=== PATIENT | female | born 1970 | race Caucasian/White ===

== ENCOUNTER 2024-04-06 16:34 | Emergency (ER) | payer OTHER, SELFPAY ==
--- OUTSIDE RECORDS SUMMARY | 2024-04-06 16:36 | XMS_ITS | Referral Summary ---
Author Organization [facility] Address [address] [place] [address] Care Team Providers Care Boom Stick Worker Name Role Phone Benita Lo APRN, C.N.P. Primary Care [facility] Source Comments Patient records contain information from all sites at [facility]. For routine questions regarding patient records, call [phone] during business hours, M-F 8:00 AM - 5:00 PM Central Time. Record requests for emergency care only can be directed to [phone] at any time.[facility] Encounters Date Type Department Care Team Description 03/22/2024 2:30 PM CRIMINAL JUSTICE INSTRUCTOR E-Visit [facility] [address] [place] [phone] Jerry Ferguson APRN, C.N.P., M.S.N. Express Care Online for Sinus Symptoms (sinusitis) 02/27/2024 Orders Only [facility] Benita Lo APRN, C.N.P. Screening Mammogram Breast Cancer 01/28/2024 Orders Only Department of Otorhinolaryngology in [place], [place] [address] [place] [phone] Stacey Gamez L.P.N. Cyst Thyroglossal Duct (Primary Dx) 01/24/2024 Clinical Communication Department of Otorhinolaryngology in [place], [place] [address] [place] [phone] Prescheduling, Provider Appt Request from Last 3 Months Allergies No known active allergies Medications magnesium glycinate 100 mg tablet Take 120 mg by mouth daily. Active estradioL (Estrace) 0.1 mg/g (0.01%) vaginal cream Insert 1 g into the vagina. 09/14/2023 Active rizatriptan (Maxalt) 10 mg tablet Take 10 mg by mouth as needed for migraine. 05/02/2023 Active topiramate (Topamax) 25 mg tablet Take 50 mg by mouth daily. 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 Resolved Problems Problem Noted Date Diagnosed Date Resolved Date Hematoma Of Soft Tissue Nontraumatic 09/08/2018 03/11/2021 Mass Neck 08/26/2018 01/04/2020 Overview (08/26/2018): Added automatically from request for surgery [id number] Immunizations Name Administration Dates Next Due HepB, Unspecified 01/07/2002,07/16/2001,04/15/19 02 Influenza TIV (IM) 03/03/2003 Influenza, Unspecified 02/10/2018,03/03/2003 SARS-COV-2 (COVID-19) - MODERNA(Discontinued) 03/10/2021 Td (Adult), adsorbed 07/16/2001 Td, (Adult) Unspecified 07/24/2010 Tdap 12/04/2018 influenza trivalent vaccine (6 months and older)(PF) 03/04/2012 influenza vaccine quad (FLUZ ONE/FLUARIX) (6 months and older)(PF) 01/23/2023,12/25/2019,02/09/2018 Social History Tobacco Use Types Packs/Day Years Used Date Smoking Tobacco: Never Passive Smoke Exposure: Past Smokeless Tobacco: Never Tobacco Cessation:Counseling Given: Not Answered Alcohol Use Standard Drinks/Week Comments Yes 0 (1 standard drink = 0.6 oz pur e alcohol) Once a year [facility] Utilities Answer Date Recorded In the past 12 months has e [employer], gas, oil, or water [employer] threatened to shut off services in your home? No 09/23/2023 Humiliation, Afraid, Rape, and Kick questionnair e Answer Date Recorded Within the last year, have y ou been afraid of your partner or ex-partner? No 12/26/2021 Within the last year, have y ou been humiliated or emotionally abused in other ways by your partner or ex-partner? No Within the last year, have y ou been kicked, hit, slapped, or otherwise physically hurt by your partner or ex-partner? No 12/26/2021 Within the last year, have y ou been raped or forced to have any kind of sexual activity by your partner or ex-partner? No 12/26/2021 Social Connection and Isolat ion Panel [NHANES] Answer Date Recorded In a typical week, how many times do you talk on the phone with family, friends, or neighbors? More than three times a week 12/26/2021 How often do you get togethe r with friends or relatives? More than three times a week 12/26/2021 How often do you attend memorial healthcare or protestant services? More than 4 times per year 12/26/2021 Do you belong to any clubs o r organizations such as nondenominational groups, unions, fraternal or athletic groups, or school groups? Yes 12/26/2021 How often do you attend meet ings of the clubs or organizations you belong to? More than 4 times per year 12/26/2021 Are you , , di vorced, , never , or living with a partner? 12/26/2021 AUDIT-C Answer Date Recorded Q1: How often do you have a drink containing alc ohol? Never 12/26/2021 Average Number of Drinks Not on file 022 Frequency of Binge Drinking Not on file 05/2021 Overall Financial Resource Strain (CARDIA) Answe r Date Recorded How hard is it for you to pa y for the very basics like food, housing, medical care, and heating? Not hard at all 12/26/2021 PHQ-2 Answer Date Recorded PHQ-2 Score 0 04/03/2022 [facility] - Occupational Stress Questionnaire Answer Date Recorded Do you feel stress - tense, restless, nervous, or anxious, or unable to sleep at night because your mind is troubled all the time - these days? Not at all 12/26/2021 Exercise Vital Sign Answer Date Recorde d On average, how many days pe r week do you engage in moderate to strenuous exercise (like a brisk walk)? 3 days 09/23/2023 On average, how many minutes do you engage in exercise at this level? 30 min 09/23/2023 Hunger Vital Sign Answer Date Recorded Within the past 12 months, y ou worried that your food would run out before you got the money to buy more. Never true 09/23/19 24 Within the past 12 months, t he food you bought just didn't last and you didn't have money to get more. Never true 09/23/2023 PRAPARE - Transportation Answer Date Re corded In the past 12 months, has l ack of transportation kept you from medical appointments or from getting medications? No 08/26 In the past 12 months, has l ack of transportation kept you from meetings, work, or from getting things needed for daily living? No 09/23/2023 Nutrition Answer Date Recorded On average, how many serving s of fruits and vegetables do you eat per day (serving size is equal to 1 cup or approximately the size of a tennis ball)? 5 or more 09/23/2023 Dental Answer Date Recorded Dental: Regular Dentist Yes 12/27/19 Employment Answer Date Recorded Employment status Employed and actively working without restrictions 09/23/2023 Housing Stability Answer Date Recorded What is your living situation today? I have a [facility] place to live 09/23/2023 Education Answer Date Recorded What is the highest level of school you have completed or the highest degree you have received? Bachelor's degree (e.g., BA, AB, BS) 11/08/2018 Comments No Sex and Gender Information Value Date Recorded Sex Assigned at Female 11/01/2017 8:04 AM CDT Legal Sex Female 5:59 AM CRIMINAL JUSTICE INSTRUCTOR Gender Identity Female 11/01/2017 8:04 AM CDT Sexual Orientation Straight 11/01/2017 8: 04 AM CDT Last Filed Vital Signs Vital Sign Reading Time Taken Comments Blood Pressure 146/78 09/24/2023 1:14 PM CDT Pulse 86 09/24/2023 1:14 PM CDT Temperature 36.8 C (98.2 F) 09/24/2023 1:14 PM CDT Respiratory Rate 16 12/28/2022 9:15 AM CDT Oxygen Saturation 100% 10/24/2018 12:31 PM CDT Inhaled Oxygen Concentration - - Weight 67.3 kg (148 lb 4.2 oz) 09/24/2023 1:14 P M CDT Height 170.7 cm (5' 7.21) 09/24/2023 1:14 PM CD T Body Mass Index 23.08 09/24/2023 1:14 PM CDT Plan of Treatment Not on file Procedures Procedure Name Priority Date/Time Associated Diagnosis Comments GLUCOSE, FASTING, S/P Routine 12/13/2021 7:46 AM CDT Screening Examination Diabetes Mellitus LIPID PANEL, S Routine 12/13/2021 7:46 AM CDT Screening Lipid COLOGUARD Routine 06/02/2020 2:20 PM CRIMINAL JUSTICE INSTRUCTOR Screening Colon Cancer Average Risk BI BREAST SCREENING BILATERAL WITH TOMOSYNTHESIS RAD - Routine (most inpatients and all outpatients) 02/02/2020 3:56 PM CRIMINAL JUSTICE INSTRUCTOR Screening Mammogram Breast Cancer from Last 3 Months or Most Recently Relevant to Health Maintenance Results * Lipid Panel (12/13/2021 7:46 AM CDT) Triglycerides 44 mg/dL 12/13/2021 11:38 AM CDT OWAT Comment: ----REFERENCE VALUE---- Normal: <150 mg/dL Borderline High: 150-199 mg/dL High: 200-499 mg/dL Very High: > or =500 mg/dL Cholesterol, Total 164 mg/dL 2021 11:38 AM CDT OWAT Comment: ----REFERENCE VALUE---- Desirable: < 200 mg/dL Borderline High: 200 - 239 mg/dL High: > or = 240 mg/dL Cholesterol, LDL, Calculated 102 mg/dL 12/13/2021 11:38 AM CDT OWAT Comment: ----REFERENCE VALUE---- Desirable: <100 mg/dL Above Desirable: 100-129 mg/dL Borderline High: 130-159 mg/dL High: 160-189 mg/dL Very High: >=190 mg/dL ----ADDITIONAL INFORMATION---- LDL cholesterol calculated using the Barba/NIH equation. Cholesterol, HDL 53 >=50 mg/dL 12/14/19 11:38 AM CDT OWAT Cholesterol, Non-HDL, Calculated 111 mg/dL 12/13/2021 11:38 AM CDT OWAT Comment: ----REFERENCE VALUE---- Desirable: <130 mg/dL Above Desirable: 130-159 mg/dL Borderline High: 160-189 mg/dL High: 190-219 mg/dL Very High: > or =220 mg/dL Fasting (8 HR or more) Yes 12/13/2021 10:59 AM CDT OWAT Blood (Blood, Venous) 12/13/2021 7:46 AM CDT 12/13/2021 10:59 AM CDT Stacey Bailey M.D. LAB BLOOD ADD-ON Final Re sult Performing Organization Address [facility] Co de Phone Number [facility] [address] [place] [phone], [facility] OWAT [facility] [place] [address] [place] [id number] * Glucose, Fasting (12/13/2021 7:46 AM CDT) Glucose, P 81 70 - 100 mg/dL 12/13/2021 11:44 AM CDT OWAT Last Intake 12 hr 12/13/2021 10:59 AM CDT OWAT Blood (Blood, Venous) 12/13/2021 7:46 AM CDT 12/13/2021 10:59 AM CDT us Stacey Bailey M.D. LAB BLOOD NON ADD-ON Brinda l Result Performing Organization Address City/[facility]/ZIP Co de Phone Number [facility] [address] [place] [phone], [facility] OWAT [facility] [place] [address] [place] [address] * Cologuard-Sent Out Lab (06/02/2020 2:20 PM CRIMINAL JUSTICE INSTRUCTOR) Result Negative Not Applicable 06/06/2020 11:07 PM CDT [facility] Comment: A negative result indicates a low likelihood that a colorectal cancer (CRC) or an advanced adenoma (adenomatous polyps with more advanced pre-malignant features) is present. The chance that a person with a negative Cologuard test has a colorectal cancer is less than 1 in 1500 (negative predictive value >99.9%) or has an advanced adenoma is less than 5.3% (negative predictive value 94.7%). These data are based on a prospective cross-sectional screening study of 10,000 individuals at average risk for colorectal cancer who were screened with both Cologuard and colonoscopy. (Ariel Diallo et al, N Engl J Med 2014;370(14):7053-2712) The normal value (reference range) for this assay is negative. COLOGUARD RE-SCREENING RECOMMENDATION: Periodic routine colorectal cancer screening is an important part of preventive healthcare for asymptomatic persons at average risk for colorectal cancer. Following a negative Cologuard result, the [place] Cancer Society and U.S. Multi-Society Task Force screening guidelines recommend a Cologuard re-screening interval of 3 years. References: [place] [employer] Society (ACS). Colorectal cancer prevention and early detection. [place], [place]: [place] [employer] Society; [updated 2015Jul 17]. https://www.cancer.org/cancer/vxpmh-eyqfyi-keuuvc/detection- diagnosis-staging/acs-recommendations.html. Accessed November 23, 2017; Gary DK, Hola CR, Beckie CaraballoK, Colorectal Cancer Screening: Recommendations for Physicians and Patients from the U.S. Multi-Society Task Force on Colorectal Cancer Screening, Am J Gastroenterology 2017; 112:9450-0799. TEST TYPE: Composite algorithmic analysis of stool DNA-biomarkers with hemoglobin immunoassay. Quantitative values of individual biomarkers are not reportable and are not associated with individual biomarker result reference ranges. PRECAUTIONS AND LIMITATIONS: Cologuard is intended for colorectal cancer screening of adults of either sex, 45 years or older, who are at average-risk for colorectal cancer (CRC). Cologuard has been approved for use by the U.S. FDA. Cologuard may produce a false negative or false positive result. A negative Cologuard test result does not guarantee the absence of CRC or advanced adenoma (pre-cancer). Patients with a negative Cologuard test result should be advised to continue participating in a colorectal cancer screening program. The screening interval for Cologuard is currently recommended at an interval of every 3 years by the [place] [employer] Society and U.S. Multi-Society Task Force. A false positive result occurs when Cologuard produces a positive result, even though a colonoscopy may not find colorectal cancer or precancerous polyps. The performance of Cologuard has been established in a cross sectional study (i.e., single point in time) of average-risk adults aged 50-84. Cologuard performance in patients ages 45 to 49 years was estimated by sub-group analysis of near-age groups. Cologuard performance data in a 10,000 patient pivotal study using colonoscopy as the reference method can be accessed at the following location: www.ShowKit/results. Additional description of the Cologuard test process, warnings and precautions can be found at www.cologuardtest.com. Rx only. Stool (Stool) 06/02/2020 2:2 0 PM CRIMINAL JUSTICE INSTRUCTOR 06/03/2020 11:07 AM CRIMINAL JUSTICE INSTRUCTOR Stacey Bailey M.D. LAB BODY FLUIDS AND STOOL S ORDERABLES Final Result [employer] [address] [place] [address] [facility] [employer] [address] [facility], [address] [place] [address] from Last 3 Months or Most Recently Relevant to Health Maintenance Insurance [facility] Advance Directives For more information, please contact: [phone] Documents on File Type Date Recorded Patient Crane Hooker Expl anation Advance Directives 02/08/2017 12:00 AM Aubree mcbride document. See document viewer. * Full Code (Latest Code Status on File) Date Activated Date Inactivated Comments 09/08/2018 11:52 AM 09/09/2018 12:49 PM Question Answer Comments Full Code: Not Discussed Due to: Not medically appropriate Care Teams Boom Stick Worker Relationship Specialty Start Date End Date Benita Lo APRN, C.N.P. [address] [place] [phone] PCP - General 04/13/22
--- OUTSIDE RECORDS SUMMARY | 2024-04-06 16:36 | XMS_ITS | Encounter Summary ---
Author Organization [facility] Address [address] [place] [address] Care Team Providers Care Screw Machine Adjuster Automatic Name Role Phone Benita Lo APRN, C.N.P. Primary Care [facility] Reason for Visit * Reason Onset Date Comments Appt Request 01/24/2024 Encounter Details Date Type Department Care Team (Latest Contact Info) Description 01/24/2024 Clinical Communication Department of Otorhinolaryngology in [place], [place] [address] [place] [address] Prescheduling, Provider Appt Request Social History Tobacco Use Types Packs/Day Years Used Date Smoking Tobacco: Never Passive Smoke Exposure: Past Smokeless Tobacco: Never Alcohol Use Standard Drinks/Week Comments Yes 0 (1 standard drink = 0.6 oz pur e alcohol) Once a year [facility] Utilities Answer Date Recorded In the past 12 months has e [employer], gas, oil, or water [employer] threatened to shut off services in your [...] week 12/26/2021 How often do you attend chur or latter day services? More than 4 times per year 12/26/2021 Do you belong to any clubs o r organizations such as alevism groups, unions, fraternal or athletic groups, or [...] Answer Date Recorded PHQ-2 Score 0 04/03/2022 [facility] Questionnaire Answer Date Recorded [...] your living situation today? [facility] to live 09/23/2023 Education Answer Date Recorded What is the highest level of school you have completed or the highest degree you have received? Bachelor's degree (e.g., BA, AB, BS) 11/08/2018 Comments No Sex and Gender Information Value Date Recorded Sex Assigned at Female 11/01/2017 8:04 AM CDT Legal Sex Female 5:59 AM BALL ASSEMBLER Gender Identity Female 11/01/2017 8:04 AM CDT Sexual Orientation Straight 11/01/2017 8: 04 AM CDT documented as of this encounter Plan of Treatment Not on file documented as of this encounter Visit Diagnoses Not on filedocumented in this encounter Additional Health Concerns Assessment Noted Time PHQ-9 Depression Total Score: 0 03/01/20 18 1:18 PM BALL ASSEMBLER documented as of this encounter Care Teams Screw Machine Adjuster Automatic Relationship Specialty Start Date End Date Benita Lo, BERNADINE, C.N.P. [address] [place] [phone] PCP - General 04/13/22 documented as of this encounter
--- OUTSIDE RECORDS SUMMARY | 2024-04-06 16:36 | XMS_ITS | Clinical Summary ---
Author Organization [facility] Address [address] [place] [address] Care Team Providers Care Public Housing Interviewer Name Role Phone Benita Lo APRN CStevenNStevenP. Primary Care Provi addie Source Comments Patient records contain information from all sites at [facility]. For routine questions regarding patient records, call [phone] during business hours, M-F 8:00 AM - 5:00 PM Central Time. Record requests for emergency care only can be directed to [phone] at any time.[facility] Allergies No known active allergies Medications magnesium [...] (08/26/2018): Added automatically from request for surgery [id number] Encounters Date Type Department Care Team Description 03/22/2024 2:30 PM BROOMCORN PRESS FEEDER E-Visit [facility] [address] [place] [address] Jerry Ferguson, BERNADINE, C.N.P., M.S.N. Express Care Online for Sinus Symptoms (sinusitis) 02/27/2024 Orders Only [facility] MNT Benita Lo, BERNADINE, C.N.P. Screening Mammogram Breast Cancer 01/28/2024 Orders Only Department of Otorhinolaryngology in [place], [place] [address] [place] [address] Stacey Gamez L.P.N. Cyst Thyroglossal Duct (Primary Dx) 01/24/2024 Clinical Communication Department of Otorhinolaryngology in [place], [place] [address] [place] [phone] Prescheduling, Provider Appt Request from Last 3 Months Immunizations Name Administration Dates Next Due HepB, Unspecified 01/07/2002,07/16/2001,04/15/19 02 Influenza TIV (IM) 03/03/2003 Influenza, Unspecified 02/10/2018,03/03/2003 SARS-COV-2 (COVID-19) - MODERNA(Discontinued) 03/10/2021 Td (Adult), adsorbed 07/16/2001 Td, (Adult) Unspecified 07/24/2010 Tdap 12/04/2018 influenza trivalent vaccine (6 months and older)(PF) 03/04/2012 influenza vaccine quad (FLUZ ONE/FLUARIX) (6 months and older)(PF) 01/23/2023,12/25/2019,02/09/2018 Family History Medical History Relation Name Comments Breast cancer Cousin x3 maternal Coronary artery disease Father marina citurs Diabetes Father marina citurs Hyperlipidemia Father marina citedinson Osteoporosis Maternal Grandmother fabiola bundy Other cancer Maternal Grandmother fabiola bundy Bone a nd multiple myeloma Skin cancer Maternal Grandmother fabiola bundy Breast cancer Mother clari hope Hyperlipidemia Mother clari hope Osteoporosis Mother clari hope Skin cancer Mother clari hope Breast cancer Mother's Sister 1 Gaby Breast cancer Mother's Sister 2 Breast cancer Mother's Sister 3 azul Coronary artery disease Mother's Sister 3 azul Coronary artery disease Paternal Grandfather lyric walls rs Diabetes Paternal Grandfather lyric worley Relation Name Status Comments Cousin x3 maternal Alive Father marina worley Alive Maternal Grandmother fabiola bundy Alive Mother clari hope Alive Mother's Sister 1 Gaby Alive Mother's Sister 2 Mother's Sister 3 azul Alive Paternal Grandfather lyric worley Alive Social History Tobacco Use Types Packs/Day Years Used Date Smoking Tobacco: Never Passive Smoke Exposure: Past Smokeless Tobacco: Never Tobacco Cessation:Counseling Given: Not Answered Alcohol Use Standard Drinks/Week Comments Yes 0 (1 standard drink = 0.6 oz pur e alcohol) Once a year [facility] Utilities Answer Date Recorded In the past 12 months has e [employer], gas, oil, or water [employer] threatened to shut off services in your [...] How often do you attend chur or yarsanism services? More than 4 times per year 12/26/2021 Do you belong to any clubs o r organizations such as mormon groups, unions, fraternal or athletic groups, or [...] Answer Date Recorded PHQ-2 Score 0 04/03/2022 [facility] Occupat ional Health - Occupational Stress [...] AM CDT Legal Sex Female 5:59 AM BROOMCORN PRESS FEEDER Gender Identity Female 11/01/2017 8:04 AM CDT [...] 09/24/2023 1:14 PM CDT Plan of Treatment Health Maintenance Due Date Last Done Comments CT Colonography 1970 Colonoscopy 1970 FIT 1970 HIV Screening 1970 Hepatitis C Screening 1970 Pneumococcal vaccine (50+ years) (1 of 1 - PCV) 01/28/2020 Zoster Vaccines (1 of 2) 01/28/2020 COVID-19 Vaccine ( - season) 2023 03/10/2021, 08/03/2020, 07/06/2020 Influenza Vaccine (#1) 2023 , 12/25/2019, 02/10/2018, Additional history exists Depression Screening (Annual PHQ-2) 03/26/2024 Fasting Glucose for Diabetes Screening 12/13/2024 12/13/2021, 09/08/2018, 11/01/2017, Additional history exists Mammogram 03/05/2025 03/05/2024, 02/23, 02/23/2023, Additional history exists Cologuard 06/20/2026 06/21/2023, 05/25, 06/02/2020 Colorectal Cancer Screening 06/20/2026 Lipid (Cholesterol) Screening 09/12/2028 09/13/2023, 12/13/2021, 11/01/2017 DTaP,Tdap,and Td Vaccines (2 - Td or Tdap) 12/04/2028 12/04/2018, 07/24/2010, 07/16/2001 Hepatitis B Vaccines Completed 01/07/2002, 07/16/2001, 04/15/2001 IPV Vaccines Aged Out No longer eligi ble based on patient's age to complete this topic Procedures Procedure Name Priority Date/Time Associated Diagnosis Comments GLUCOSE, FASTING, S/P Routine 12/13/2021 7:46 AM CDT Screening Examination Diabetes Mellitus LIPID PANEL, S Routine 12/13/2021 7:46 AM CDT Screening Lipid COLOGUARD Routine 06/02/2020 2:20 PM BROOMCORN PRESS FEEDER Screening Colon Cancer Average Risk BI BREAST SCREENING BILATERAL WITH TOMOSYNTHESIS RAD - Routine (most inpatients and all outpatients) 02/02/2020 3:56 PM BROOMCORN PRESS FEEDER Screening Mammogram Breast Cancer from Last 3 [...] CDT us Stacey Bailey M.D. LAB BLOOD ADD-ON Final Re sult [facility] [address] [place] [address], [facility] OWAT [facility] [place] [address] [place] [address] * Glucose, Fasting (12/13/2021 7:46 AM CDT) Glucose, P 81 70 - 100 mg/dL 12/13/2021 11:44 AM CDT OWAT Last Intake 12 hr 12/13/2021 10:59 AM CDT OWAT Blood (Blood, Venous) 12/13/2021 7:46 AM CDT 12/13/2021 10:59 AM CDT us Stacey Bailey M.D. LAB BLOOD NON ADD-ON Brinda l Result [facility] [address] [place] [address], [place] OWAT [facility] [place] [address] [place] [address] * Cologuard-Sent Out Lab (06/02/2020 2:20 PM BROOMCORN PRESS FEEDER) Result Negative Not Applicable 06/06/2020 11:07 PM [...] screened with both Cologuard and colonoscopy. (Ariel Jeff al, N Engl J Med 2014;370(14):1007-0608) The normal value (reference range) for this assay is negative. COLOGUARD RE-SCREENING RECOMMENDATION: Periodic routine colorectal cancer screening is an important part of preventive healthcare for asymptomatic persons at average risk for colorectal cancer. Following a negative Cologuard result, the [place] Cancer Society and U.S. Multi-Society Task Force screening guidelines recommend a Cologuard re-screening interval of 3 years. References: [place] [employer] Society (ACS). Colorectal cancer prevention and early detection. [place], [place]: [place] [employer] Society; [updated 2016 Jul 17]. https://www.cancer.org/cancer/ussax-ddbknw-kgzwfa/detection- diagnosis-staging/acs-recommendations.html. Accessed November 23, 2017; Gary DK, Hola CR, Beckie HERNANDEZ, Colorectal Cancer Screening: Recommendations for Physicians and Patients from the U.S. Multi-Society Task Force on Colorectal Cancer Screening, Am J Gastroenterology 2017; 112:7668-1760. TEST TYPE: Composite algorithmic analysis of stool [...] interval of every 3 years by the [place] [employer] Society and U.S. Multi-Society Task Force. [...] can be accessed at the following location: www.[employer]/results. Additional description of the Cologuard test process, warnings and precautions can be found at www.cologuardtest.com. Rx only. Stool (Stool) 06/02/2020 2:2 0 PM BROOMCORN PRESS FEEDER 06/03/2020 11:07 AM BROOMCORN PRESS FEEDER us Stacey Bailey M.D. LAB BODY FLUIDS AND STOOL S ORDERABLES Final Result [employer] [address] [place] [address] [email or web address] [address] [place] [address], [address] [place] [address] from Last 3 Months or Most Recently Relevant to Health Maintenance Insurance [facility] Advance Directives For more information, please contact: [phone] Documents on File Type Date Recorded Patient Materials Handling Coordinator Expl anation Advance Directives 02/08/2017 12:00 AM Aubree mcbride document. See document viewer. * Full Code (Latest Code Status on File) Date Activated Date Inactivated Comments 09/08/2018 11:52 AM 09/09/2018 12:49 PM Question Answer Comments Full Code: Not Discussed Due to: Not medically appropriate Care Teams Public Housing Interviewer Relationship Specialty Start Date End Date Benita Lo, BERNADINE, C.N.P. [address] [phone] PCP - General 04/13/22
--- OUTSIDE RECORDS SUMMARY | 2024-04-06 16:36 | XMS_ITS | Encounter Summary ---
Author Organization [facility] Address [address] [place] [address] Care Team Providers Care Network Strategist Name Role Phone Benita Lo APRN, C.N.P. Primary Care Provi [facility] Encounter Details Date Type Department Care Team (Late st Contact Info) Description 03/22/2024 2:30 PM MEAL ROOM HAND E-Visit [facility] [address] [place] [address] Jerry Ferguson APRN, C.N.P., M.S.N. [address] [place] [phone] Express Care Online for Sinus Symptoms (sinusitis) Social History Tobacco Use Types Packs/Day Years Used Date Smoking Tobacco: Never Passive Smoke Exposure: Past Smokeless Tobacco: Never Alcohol Use Standard Drinks/Week Comments Yes 0 (1 standard drink = 0.6 oz pur e alcohol) Once a year [facility] Utilities Answer Date Recorded In the past 12 months has [employer], gas, oil, or water [employer] threatened to shut off services in your [...] How often do you attend chur or zoroastrianism services? More than 4 times per year 12/26/2021 Do you belong to any clubs o r organizations such as islam groups, unions, fraternal or athletic groups, or [...] Answer Date Recorded PHQ-2 Score 0 04/03/2022 [facility] of Occupat ional Health - Occupational Stress [...] your living situation today? I have a [facility] place to live 09/23/2023 Education Answer Date Recorded What is the highest level of school you have completed or the highest degree you have received? Bachelor's degree (e.g., BA, AB, BS) 11/08/2018 Comments No Sex and Gender Information Value Date Recorded Sex Assigned at Female 11/01/2017 8:04 AM CDT Legal Sex Female 5:59 AM MEAL ROOM HAND Gender Identity Female 11/01/2017 8:04 AM CDT Sexual Orientation Straight 11/01/2017 8: 04 AM CDT documented as of this encounter Plan of Treatment Not on file documented as of this encounter Visit Diagnoses Diagnosis Sinusitis Acute- Primary documented in this encounter Additional Health Concerns Assessment Noted Time PHQ-9 Depression Total Score: 0 03/01/20 18 1:18 PM MEAL ROOM HAND documented as of this encounter Care Teams Network Strategist Relationship Specialty Start Date End Date Benita Lo APRN, C.N.P. [address] [place] [address] PCP - General 04/13/22 documented as of this encounter
--- OUTSIDE RECORDS SUMMARY | 2024-04-06 16:36 | XMS_ITS | Clinical Summary ---
Author Organization [facility] Address [place], [place] [address] Care Team Providers Care Rice Drier Name Role Phone Stacey Bailey MD Primary Care Provider Allergies No known active allergies Medications cholecalciferol (VITAMIN D3) 1,000 unit tablet Take 25 mcg by mouth. Active Lactobacillus rhamnosus GG (CULTURELLE) 15 billion cell capsule Take 1 capsule by mouth. Active SUMAtriptan (IMITREX) 50 mg tablet TAKE 1 TABLET BY MOUTH AT ONSET OF HEADACHE, MAY REPEAT IN 2 HOURS NEEDED 03/03/2020 Active topiramate (Topamax) 25 mg tablet Take 1 Tablet (25 mg) by mouth two times daily. 0 02/21/2022 Active rizatriptan (MAXALT) 5 mg tablet Take 5 mg by mouth 2 times daily if needed for Migraine. Give at minimum 2hrs apart. Max Dose: 30mg per 24hrs. Active Magnesium Glycinate 100 mg tab Take 120 mg by mouth. Active raloxifene (EVISTA) 60 mg tabletIndicatio ns:Breast cancer screening, high risk patient,At high risk for breast cancer,Family history of breast cancer Take 1 Tablet (60 mg) by mouth once daily. 90 Tablet 03/05/2024 Active Encounters Date Type Department Care Team Description 03/05/2024 11:30 AM HAND SHAPER Office Visit [facility] [address] [facility] [address] [place] [address] Genevieve Fan PA Follow Up (high-risk follow-up) 03/05/2024 8:43 AM HAND SHAPER - 03/05/2024 11:59 PM HAND SHAPER Hospital Encounter [facility] [address] [place] [address] [place] [address] Jennifer Church PA Encounter for other screening for malignant neoplasm of breast; Encounter for screening for malignant neoplasm of breast, unspecified screening modality 03/05/2024 Travel 01/08/2024 Orders Only [facility] [address] [place] [address] [place] [address] Jennifer Church PA <No scans attached> 01/08/2024 Telephone [facility] [address] [place] [address] Jennifer Church PA Imaging from Last 3 Months Family History Medical History Relation Name Comments Cancer-breast Maternal Aunt 1 Gaby Cancer-breast Maternal Aunt 2 Leanna Cancer-breast Mother Cancer-breast Other 3 maternal cou sins 30s-40s Cancer-colon No Family History Cancer-ovarian No Family History Cancer-pancreatic No Family History Cancer-prostate No Family History Melanoma No Family History Relation Name Status Comments Maternal Aunt 1 Gaby Alive Maternal Aunt 2 Leanna Alive Mother Alive Other Social History Tobacco Use Types Packs/Day Years Used Date Smoking Tobacco: Never Smokeless Tobacco: Never Alcohol Use Standard Drinks/Week Comments Never 0 (1 standard drink = 0.6 oz pur e alcohol) Social Connections Answer Date Recorded Frequency of Communication with Friends and Fami ly Not on file 03/25/2021 Financial Resource Strain Answer Date R ecorded Difficulty of Paying Living Expenses Not on file 03/25/2021 Difficulty of Paying Living Expenses Not on file 03/25/2021 Comments No Sex and Gender Information Value Date Recorded Sex Assigned at Not on file Legal Sex Female 3:06 PM CDT Gender Identity Not on file Sexual Orientation Not on file Obstetrics History Last Filed Vital Signs Vital Sign Reading Time Taken Comments Blood Pressure 138/75 03/05/2024 10:19 AM HAND SHAPER Pulse 74 03/05/2024 10:19 AM HAND SHAPER Temperature 37.2 C (98.9 F) 03/05/2024 10:19 AM HAND SHAPER Respiratory Rate 16 03/05/2024 10:19 AM HAND SHAPER Oxygen Saturation 100% 03/05/2024 10:19 AM HAND SHAPER Inhaled Oxygen Concentration - - Weight 67.7 kg (149 lb 3.2 oz) 03/05/2024 10:19 AM HAND SHAPER Height 170.2 cm (5' 7) 03/05/2024 10:19 AM HAND SHAPER Body Mass Index 23.37 03/05/2024 10:19 AM HAND SHAPER Plan of Treatment Health Maintenance Due Date Last Done Comments Tdap 1981 Depression screening for age 12+ 1982 HIV for age 15-65 1985 Hepatitis C screening for ag e 18-79 01/28/1988 Tetanus booster 1990 Pap test for age 21-65 1991 Colonoscopy through age 75 2015 Lipids for age 45-75 2015 Pneumococcal series for age 50+ (1 of 1 - PCV) 01/28/2020 Zoster (shingles) series for age 50+ (1 of 2) 01/28/2020 COVID-19 vaccine series ( season) 2023 03/10/2021, 08/03/2020, 07/06/2020 Influenza for age 50-64 11/25/2023 BMI (ht and wt on same day) for age 18+ 03/05/2025 03/05/2024, 02/23/2023, 08/12/2020, Additional history exists Mammogram for age 45-75 03/05/2025 03/05/20 24, 02/23/2023, 02/21/2022, Additional history exists Procedures Procedure Name Priority Date/Time Associated Diagnosis Comments US BREAST BILATERAL COMPLETE Routine 03/05/2024 10:08 AM HAND SHAPER Encounter for screening for malignant neoplasm of breast, unspecified screening modality XR MAMMO DELON BILAT SCREEN Routine 03/05/2024 9:31 AM HAND SHAPER Encounter for other screening for malignant neoplasm of breast from Last 3 Months Results * US BREAST BILATERAL COMPLETE (03/05/2024 10:08 AM HAND SHAPER) Anatomical Region Laterality Modality BREASTS, Breast Left, Breast Right Bilateral Ultrasound, Other 03/05/2024 2:25 PM HAND SHAPER Impressions 03/05/2024 4:53 PM HAND SHAPER Negative. RECOMMENDATIONS: Follow-up with annual screening mammography. If continuing the supplemental screening with ultrasound this is best performed at the time of the mammogram. Results and recommendations were discussed with the patient at the time of the exam. BI-RADS Category 1: Negative Dictated by: Mariam Zamora MD @03/05/2024 2:25:24 PM/maribel Narrative 03/05/2024 4:53 PM HAND SHAPER For Patients: As a result of the Cures Act, medical imaging exams and procedure reports are released immediately into your electronic medical record. You may view this report before your referring provider. If you have questions, please contact your health care provider. BILATERAL BREAST ULTRASOUND, 03/05/2024 CLINICAL HISTORY: Supplemental screening due to strong family history. COMPARISON: BILATERAL mammogram 03/05/2024. TECHNIQUE: Real-time ultrasound imaging of BILATERAL complete breasts with imaging documentation. Scanning was performed by both the technologist and the radiologist. All four quadrants of each breast, the BILATERAL subareolar tissue and the BILATERAL axilla examined. FINDINGS: Both breasts negative. No suspicious findings. us Jennifer ZELAYA US Final Resu lt * XR MAMMO DELON BILAT SCREEN (03/05/2024 9:31 AM HAND SHAPER) Anatomical Region Laterality Modality BREASTS, Breast Left, Breast Right Bilateral Mammography Impressions 03/05/2024 2:23 PM HAND SHAPER There is no radiographic evidence for malignancy. Recommend annual mammograms. MAMMOGRAM ASSESSMENT: ACR 1 Negative PATIENTS: You will also receive a letter with your examination results in an easy to read format. If you have questions about your results, please contact your referring provider. Narrative 03/05/2024 2:23 PM HAND SHAPER For Patients: As a result of the Cures Act, medical imaging exams and procedure reports are released immediately into your electronic medical record. You may view this report before your referring provider. If you have questions, please contact your health care provider. XR MAMMO DELON BILAT SCREEN [[id number]] CLINICAL HISTORY: This is an asymptomatic 54 y.o. patient. INDICATION FOR EXAM: Mammogram Screening. TECHNIQUE: CC & MLO views were obtained. This study was evaluated with the assistance of Computer-Aided Detection. Breast Tomosynthesis was used in interpretation. COMPARISON FILM: Yes 02/23/23 [facility] 02/21/22 [facility] FINDINGS: There are scattered areas of fibroglandular density. There are no dominant masses, suspicious micro calcifications or areas of architectural distortion. Stacey Bailey MD MAMMO Final R esult from Last 3 Months Insurance [facility] Care Teams Rice Drier Relationship Specialty Start Date End Date Stacey Bailey MD [address] [place] [address] [address] PCP - General Family Practice 02/22/23
--- OUTSIDE RECORDS SUMMARY | 2024-04-06 16:36 | XMS_ITS ---
Author Organization [facility] Address [address] [place] [address] Care Team Providers Care Stacker And Sorter Operator Name Role Phone Unavailable Unavailable Unavailable Surgery Details Not on file Complications Check Surgery Details section. Procedure Estimated Blood Loss Check Surgery Details section. Procedure Findings Check Surgery Details section. Procedure Specimens Taken Check Surgery Details section.
--- OUTSIDE RECORDS SUMMARY | 2024-04-06 16:36 | XMS_ITS | Continuity of Care Document ---
Author Name [facility] User [email or web address] l[facility] Address Unknown Organization Unknown Address Unknown Encounters FILTER APPLIED:Only known Encounters with Admission Date within the last 5 years Encounter Location Admission Discharge Billing Code Food Service Driver Attender Outpatient Outpatient Outpatient Outpatient Outpatient Outpatient Outpatient Outpatient Outpatient Outpatient Outpatient Outpatient Outpatient Outpatient [facility] ARLEY JORDAN
--- OUTSIDE RECORDS SUMMARY | 2024-04-06 16:36 | XMS_ITS | Encounter Summary ---
Author Organization [facility] Address [address] [place] [address] Care Team Providers Care Uptwist Spinner Name Role Phone Benita Lo APRN, C.N.P. Primary Care Provi addie Reason for Referral * Outpatient (Routine) - Authorized Specialty Diagnoses / Procedures Referred By Contac t Referred To Contact Diagnoses Screening Mammogram Breast Cancer Procedures BI Breast Screening Bilateral with Tomosynthesis Benita Lo APRN, C.N.P. [address] [place] [address] Phone: tel: fax: [facility] Referral ID Status Reason Start Date Expiration Date V isits Requested Visits Authorized [id number] Authorized 02/27/2024 02/26/2025 1 1 PEDIATRIC ICU Encounter Details Date Type Department Care Team (Late st Contact Info) Description 02/27/2024 Orders Only [facility]CP [facility] MNT Benita Lo APRN, C.N.P. [address] [place] [phone] Screening Mammogram Breast Cancer Social History Tobacco Use Types Packs/Day Years Used Date Smoking Tobacco: Never Passive Smoke Exposure: Past Smokeless Tobacco: Never Alcohol Use Standard Drinks/Week Comments Yes 0 (1 standard drink = 0.6 oz pur e alcohol) Once a year [facility] Utilities Answer Date Recorded In the past 12 months has th e electric, gas, oil, or water company threatened to shut off services in your [...] 12/26/2021 How often do you attend chur ch or baptism services? More than 4 times per year 12/26/2021 Do you belong to any clubs o r organizations such as pentecostalism groups, unions, fraternal or athletic groups, or [...] Answer Date Recorded PHQ-2 Score 0 04/03/2022 [facility] of Occupat ional [facility] - Occupational Stress Questionnaire Answer Date Recorded [...] your living situation today? I have a [facility] place to live 09/23/2023 Education Answer Date Recorded What is the highest level of school you have completed or the highest degree you have received? Bachelor's degree (e.g., BA, AB, BS) 11/08/2018 Comments No Sex and Gender Information Value Date Recorded Sex Assigned at Female 11/01/2017 8:04 AM CDT Legal Sex Female 5:59 AM RN PEDIATRIC ICU Gender Identity Female 11/01/2017 8:04 AM CDT Sexual Orientation Straight 11/01/2017 8: 04 AM CDT documented as of this encounter Plan of Treatment Scheduled Orders Name Type Priority Associated Diagnoses Order Schedule BI Breast Screening Bilateral with Tomosynthesis Imaging RAD - Routine (most inpatients and all outpatients) Screening Mammogram Breast Cancer Expected: 03/28/2024, Expires: 08/25/2024 documented as of this encounter Visit Diagnoses Diagnosis Screening Mammogram Breast Cancer documented in this encounter Additional Health Concerns Assessment Noted Time PHQ-9 Depression Total Score: 0 03/01/20 18 1:18 PM RN PEDIATRIC ICU documented as of this encounter Care Teams Uptwist Spinner Relationship Specialty Start Date End Date Benita Lo APRN, C.N.P. [address], [place] [address] PCP - General 04/13/22 documented as of this encounter
--- OUTSIDE RECORDS SUMMARY | 2024-04-06 16:36 | XMS_ITS | Encounter Summary ---
Author Organization [facility] Address [address] [place] [address] Care Team Providers Care Mechanical Maintenance Engineer Name Role Phone Benita Lo APRN, C.NStevenPSteven Primary Care [facility] Encounter Details Date Type Department Care Team (Late st Contact Info) Description 01/30/2022 Orders Only [facility] [address] [place] [phone] [facility], Provider, MD Screening Test Laboratory Social History Tobacco Use Types Packs/Day Years Used Date Smoking Tobacco: Never Smokeless Tobacco: Never Alcohol Use Standard Drinks/Week Comments Yes 0 (1 standard drink = 0.6 oz pur e alcohol) Once a year Humiliation, Afraid, Rape, and Kick questionnair e [...] often do you attend chur ch or buddhist services? More than 4 times per year 12/26/2021 Do you belong to any clubs o r organizations such as congregational groups, unions, fraternal or athletic groups, or [...] PHQ-2 Answer Date Recorded PHQ-2 Score 0 03/10/2021 [facility] - Occupational [...] to strenuous exercise (like a brisk walk)? 5 days 12/26/2021 On average, how many minutes do you engage in exercise at this level? 40 min 12/26/2021 Hunger Vital Sign Answer Date Recorded Within the past 12 months, y ou worried that your food would run out before you got the money to buy more. Never true 12/27/19 22 Within the past 12 months, t he food you bought just didn't last and you didn't have money to get more. Never true 12/26/2021 PRAPARE - Transportation Answer Date Re corded In the past 12 months, has l ack of transportation kept you from medical appointments or from getting medications? No 05/2021 In the past 12 months, has l ack of transportation kept you from meetings, work, or from getting things needed for daily living? No 12/26/2021 Housing Stability Vital Sign Answer Krishna e Recorded In the last 12 months, was t here a time when you were not able to pay the mortgage or rent on time? No 12/26/2021 In the last 12 months, how many places have you lived? 1 12/26/2021 In the last 12 months, was t here a time when you did not have a steady place to sleep or slept in a fdc (including now)? No 12/26/2021 Nutrition Answer Date Recorded On average, how many serving s of fruits and vegetables do you eat per day (serving size is equal to 1 cup or approximately the size of a tennis ball)? 8 or more 12/26/2021 Dental Answer Date Recorded Dental: Regular Dentist Yes 12/27/19 Employment Answer Date Recorded Employment status Employed and actively working without restrictions 12/26/2021 Education Answer Date Recorded What is the highest level of school you have completed or the highest degree you have received? 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 [address] [place] [phone] PCP - General 04/13/22 documented as of this encounter
[2024-04-06 16:50] VITALS: BP 136/85; PULSE 74; RESP 18; TEMP 37.1; O2SAT 100; BMI 23.5
--- OUTSIDE RECORDS SUMMARY | 2024-04-06 17:58 | XMS_ITS | Encounter Summary ---
Author Organization [facility] Address [address] [place] [address] Care Team Providers Care Custom Framing Specialist Name Role Phone Benita Lo APRN, C.N.P. Primary Care Provi addie Reason for Referral * Outpatient (Routine) - Authorized Specialty Diagnoses / Procedures Referred By Contac t Referred To Contact Diagnoses Screening Mammogram Breast Cancer Procedures BI Breast Screening Bilateral with Tomosynthesis Benita Lo APRN, C.N.P. [address] [place] [address] Phone: tel: fax: [facility] Referral ID Status Reason Start Date Expiration Date V isits Requested Visits Authorized [id number] Authorized 02/27/2024 02/26/2025 1 1 IPLE GAMES DEALER Encounter Details Date Type Department Care Team (Late st Contact Info) Description 02/27/2024 Orders Only [facility] PCP [facility] MNT Benita Lo APRN, C.N.P. [address] [place] [phone] Screening Mammogram Breast Cancer Social History Tobacco Use Types Packs/Day Years Used Date Smoking Tobacco: Never Passive Smoke Exposure: Past Smokeless Tobacco: Never Alcohol Use Standard Drinks/Week Comments Yes 0 (1 standard drink = 0.6 oz pur e alcohol) Once a year [facility] Utilities Answer Date Recorded In [...] often do you attend chur ch or anglican services? More than 4 times per year 12/26/2021 Do you belong to any clubs o r organizations such as mu-ism groups, unions, fraternal or athletic groups, or [...] Answer Date Recorded PHQ-2 Score 0 04/03/2022 [facility] [place] Occupat ional [facility] - Occupational Stress Questionnaire Answer Date [...] your living situation today? I have a [facility] place to live 09/23/2023 Education Answer Date Recorded What is the highest level of school you have completed or the highest degree you have received? Bachelor's degree (e.g., BA, AB, BS) 11/08/2018 Comments No Sex and Gender Information Value Date Recorded Sex Assigned at Female 11/01/2017 8:04 AM CDT Legal Sex Female 5:59 AM MULTIPLE GAMES DEALER Gender Identity Female 11/01/2017 8:04 AM CDT [...] Total Score: 0 03/01/20 18 1:18 PM MULTIPLE GAMES DEALER documented as of this encounter Care Teams Custom Framing Specialist Relationship Specialty Start Date End Date Benita Lo APRN, C.N.P. [address], [place] [address] PCP - General 04/13/22 documented as of this encounter
--- OUTSIDE RECORDS SUMMARY | 2024-04-06 17:58 | XMS_ITS | Continuity of Care Document ---
Author Name NwHIN User [email or web address]-a llowed Address Unknown Organization Unknown Address Unknown Encounters FILTER APPLIED:Only known Encounters with Admission Date within the last 5 years Encounter Location Admission Discharge Billing Code Choir Accompanist Attender Outpatient Outpatient Outpatient Outpatient Outpatient Outpatient Outpatient Outpatient Outpatient Outpatient Outpatient Outpatient Outpatient Outpatient [facility] ARLEY JORDAN
--- OUTSIDE RECORDS SUMMARY | 2024-04-06 17:58 | XMS_ITS | Referral Summary ---
Author Organization [facility] Address [address] [place] [address] Care Team Providers Care Director Of Estate Name Role Phone Benita Lo APRN, C.N.P. Primary Care Provi [facility] Source Comments Patient records contain information from all sites at [facility]. For routine questions regarding patient records, call [phone] during business hours, M-F 8:00 AM - 5:00 PM Central Time. Record requests for emergency care only can be directed to [phone] at any time.[facility] Encounters Date Type Department Care Team Description 03/22/2024 2:30 PM [employer] E-Visit [facility] Express Care [address] [place] [phone] Jerry Ferguson APRN, C.N.P., M.S.N. Express Care Online for Sinus Symptoms (sinusitis) 02/27/2024 Orders Only [facility] Ben[facility] Lo APRN, C.N.P. Screening Mammogram Breast Cancer 01/28/2024 Orders Only Department of Otorhinolaryngology in [place], [place] [address] [place] [phone] Stacey Gamez L.P.N. Cyst Thyroglossal Duct (Primary Dx) 01/24/2024 Clinical Communication Department of Otorhinolaryngology in [place], [place] [address] [place] [phone] Prescheduling, Provider Appt Request from Last 3 [...] (08/26/2018): Added automatically from request for surgery [id number] Immunizations Name Administration Dates Next Due HepB, [...] oz pur e alcohol) Once a year [facility] Utilities Answer Date Recorded In the past 12 months has e [employer], gas, oil, or water [employer] threatened to shut off services in your [...] week 12/26/2021 How often do you attend [facility] or faith services? More than 4 times per year 12/26/2021 Do you belong to any clubs o r organizations such as rastafari groups, unions, fraternal or athletic groups, or [...] Answer Date Recorded PHQ-2 Score 0 04/03/2022 [facility]at ional Health - Occupational [...] your living situation today? I have a [facility] place to live 09/23/2023 Education Answer Date Recorded What is the highest level of school you have completed or the highest degree you have received? 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 [address] [place] [address], [facility] OWAT [facility] [place] [address] [place] [address] * Glucose, Fasting (12/13/2021 7:46 AM CDT) Glucose, P 81 70 - 100 mg/dL 12/13/2021 11:44 AM CDT OWAT Last Intake 12 hr 12/13/2021 10:59 AM CDT OWAT Blood (Blood, Venous) 12/13/2021 7:46 AM CDT 12/13/2021 10:59 AM CDT us Stacey Bailey M.D. LAB BLOOD NON ADD-ON Brinda l Result Performing Organization Address City/[facility]/ZIP Co de Phone Number [facility] [address] [place] [address], [facility] OWAT [facility] [place] [address] [place] [address] * Cologuard-Sent Out Lab (06/02/2020 2:20 PM [employer]) Result Negative Not Applicable 06/06/2020 11:07 PM [...] Diallo et al, N Engl J Med 2014;370(14):3835-9082) The normal value (reference range) for this assay is negative. COLOGUARD RE-SCREENING RECOMMENDATION: Periodic routine colorectal cancer screening is an important part of preventive healthcare for asymptomatic persons at average risk for colorectal cancer. Following a negative Cologuard result, the [place] Cancer Society and U.S. Multi-Society Task Force screening guidelines recommend a Cologuard re-screening interval of 3 years. References: [place] Cancer Society (ACS). Colorectal cancer prevention and early detection. [place], [place]: [place] Cancer Society; [updated 2015Jul 17]. https://www.cancer.org/cancer/kdqxo-xzirgx-wysihx/detection- diagnosis-staging/acs-recommendations.html. Accessed November 23, 2017; Gary DK, Hola CR, Beckie CaraballoK, Colorectal Cancer Screening: Recommendations for Physicians and Patients from the U.S. Multi-Society Task Force on Colorectal Cancer Screening, Am J Gastroenterology 2017; 112:2708-9488. TEST TYPE: Composite algorithmic analysis of stool [...] interval of every 3 years by the [place] Cancer Society and U.S. Multi-Society Task Force. [...] can be accessed at the following location: www.[employer]/results. Additional description of the Cologuard test process, warnings and precautions can be found at www.cologuardtest.com. Rx only. Stool (Stool) 06/02/2020 2:2 0 PM [employer] 06/03/2020 11:07 AM [employer] Stacey Bailey M.D. LAB BODY FLUIDS AND STOOL S ORDERABLES Final Result [employer] [address] [place] [address] [employer] [address] 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 See document viewer. * Full Code (Latest Code Status on File) Date Activated Date Inactivated Comments 09/08/2018 11:52 AM 09/09/2018 12:49 PM Question Answer Comments Full Code: Not Discussed Due to: Not medically appropriate Care Teams Director Of Estate Relationship Specialty Start Date End Date Benita Lo APRN, C.N.P. [address] [place] [phone] PCP - General 04/13/22
--- OUTSIDE RECORDS SUMMARY | 2024-04-06 17:58 | XMS_ITS ---
Author Organization [facility] Address [address] [place] [address] Care Team Providers Care Adoption Worker Name Role Phone Unavailable Unavailable Unavailable Surgery Details Not on file Complications Check Surgery Details section. Procedure Estimated Blood Loss Check Surgery Details section. Procedure Findings Check Surgery Details section. Procedure Specimens Taken Check Surgery Details section.
--- OUTSIDE RECORDS SUMMARY | 2024-04-06 17:58 | XMS_ITS | Clinical Summary ---
Author Organization [facility] Address [address] [place] [address] Care Team Providers Care Switchboard Installer Name Role Phone Benita Lo APRN CStevenNStevenP. Primary Care Provi addie Source Comments Patient records contain information from all sites at [facility]. For routine questions regarding patient records, call [phone] during business hours, M-F 8:00 AM - 5:00 PM Central Time. Record requests for emergency care only can be directed to [phone] at any time.[facility] Allergies No known active allergies Medications magnesium [...] (08/26/2018): Added automatically from request for surgery [id number] Encounters Date Type Department Care Team Description 03/22/2024 2:30 PM SECRETARY E-Visit [facility] Express Care [address] [place] [address] Jerry Ferguson, BERNADINE, C.N.P., M.S.N. Express Care Online for Sinus Symptoms (sinusitis) 02/27/2024 Orders Only [facility] P[facility] MNT Benita Lo, BERNADINE, C.N.P. Screening Mammogram Breast Cancer 01/28/2024 Orders Only Department of Otorhinolaryngology in [place], [place] [address] [place] [address] Stacey Gamez L.P.N. Cyst Thyroglossal Duct (Primary Dx) 01/24/2024 Clinical Communication Department of Otorhinolaryngology in [place], [place] [address] [place] [phone] Prescheduling, Provider Appt Request from Last 3 [...] oz pur e alcohol) Once a year [facility] Utilities Answer Date Recorded In the past 12 months has e [employer], gas, oil, or water [employer] threatened to shut off services in your [...] How often do you attend chur or shinto services? More than 4 times per year 12/26/2021 Do you belong to any clubs o r organizations such as anabaptism groups, unions, fraternal or athletic groups, or [...] Answer Date Recorded PHQ-2 Score 0 04/03/2022 [facility] of Occupat ional Health - Occupational [...] your living situation today? I have a [facility] place to live 09/23/2023 Education Answer Date Recorded What is the highest level of school you have completed or the highest degree you have received? Bachelor's degree (e.g., BA, AB, BS) 11/08/2018 Comments No Sex and Gender Information Value Date Recorded Sex Assigned at Female 11/01/2017 8:04 AM CDT Legal Sex Female 5:59 AM SECRETARY Gender Identity Female 11/01/2017 8:04 AM CDT [...] Screening Lipid COLOGUARD Routine 06/02/2020 2:20 PM SECRETARY Screening Colon Cancer Average Risk BI BREAST SCREENING BILATERAL WITH TOMOSYNTHESIS RAD - Routine (most inpatients and all outpatients) 02/02/2020 3:56 PM SECRETARY Screening Mammogram Breast Cancer from Last 3 [...] M.D. LAB BLOOD ADD-ON Final Re sult [facility] [address] [place] [address], [facility] OWAT [facility] [place] [address] [place] [address] * Glucose, Fasting (12/13/2021 7:46 AM CDT) Glucose, P 81 70 - 100 mg/dL 12/13/2021 11:44 AM CDT OWAT Last Intake 12 hr 12/13/2021 10:59 AM CDT OWAT Blood (Blood, Venous) 12/13/2021 7:46 AM CDT 12/13/2021 10:59 AM CDT us Stacey Bailey M.D. LAB BLOOD NON ADD-ON Brinda l Result [facility] [address] [place] [address], [place] OWAT [facility] [place] [address] [place] [address] * Cologuard-Sent Out Lab (06/02/2020 2:20 PM SECRETARY) Result Negative Not Applicable 06/06/2020 11:07 PM [...] (Ariel Jeff al, N Engl J Med 2014;370(14):5936-0977) The normal value (reference range) for this assay is negative. COLOGUARD RE-SCREENING RECOMMENDATION: Periodic routine colorectal cancer screening is an important part of preventive healthcare for asymptomatic persons at average risk for colorectal cancer. Following a negative Cologuard result, the [place] Cancer Society and U.S. Multi-Society Task Force screening guidelines recommend a Cologuard re-screening interval of 3 years. References: [place] Cancer Society (ACS). Colorectal cancer prevention and early detection. [place], [place]: [place] Cancer Society; [updated 2016 Jul 17]. https://www.cancer.org/cancer/vzrib-catzoq-vdyxcn/detection- diagnosis-staging/acs-recommendations.html. Accessed November 23, 2017; Gary DK, Hola CR, Beckie HERNANDEZ, Colorectal Cancer Screening: Recommendations for Physicians and Patients from the U.S. Multi-Society Task Force on Colorectal Cancer Screening, Am J Gastroenterology 2017; 112:2422-9352. TEST TYPE: Composite algorithmic analysis of stool [...] interval of every 3 years by the [place] Cancer Society and U.S. Multi-Society Task Force. [...] can be accessed at the following location: www.[employer]/results. Additional description of the Cologuard test process, warnings and precautions can be found at www.cologuardtest.com. Rx only. Stool (Stool) 06/02/2020 2:2 0 PM SECRETARY 06/03/2020 11:07 AM SECRETARY us Stacey Bailey M.D. 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 See document viewer. * Full Code (Latest Code Status on File) Date Activated Date Inactivated Comments 09/08/2018 11:52 AM 09/09/2018 12:49 PM Question Answer Comments Full Code: Not Discussed Due to: Not medically appropriate Care Teams Switchboard Installer Relationship Specialty Start Date End Date Benita Lo, BERNADINE, C.N.P. [address] [phone] PCP - General 04/13/22
--- OUTSIDE RECORDS SUMMARY | 2024-04-06 17:58 | XMS_ITS | Clinical Summary ---
Author Organization [facility] Address [place], [place] [address] Care Team Providers Care Magazine Feeder Name Role Phone Stacey Bailey MD Primary [...] Department Care Team Description 03/05/2024 11:30 AM REAL ESTATE ASSOCIATE Office Visit [facility] [address] [facility] [address] [place] [address] Genevieve Fan PA Follow Up (high-risk follow-up) 03/05/2024 8:43 AM REAL ESTATE ASSOCIATE - 03/05/2024 11:59 PM REAL ESTATE ASSOCIATE Hospital Encounter [facility] [address] [place] [address] [place] [address] Jennifer Church PA Encounter for other screening for malignant neoplasm of breast; Encounter for screening for malignant neoplasm of breast, unspecified screening modality 03/05/2024 Travel 01/08/2024 Orders Only [facility] [address] [place] [address] [place] [address] Jennifer Church PA <No scans attached> 01/08/2024 Telephone [facility] [address] [place] [address] Jennifer Church PA Imaging from Last 3 [...] Comments Blood Pressure 138/75 03/05/2024 10:19 AM REAL ESTATE ASSOCIATE Pulse 74 03/05/2024 10:19 AM REAL ESTATE ASSOCIATE Temperature 37.2 C (98.9 F) 03/05/2024 10:19 AM REAL ESTATE ASSOCIATE Respiratory Rate 16 03/05/2024 10:19 AM REAL ESTATE ASSOCIATE Oxygen Saturation 100% 03/05/2024 10:19 AM REAL ESTATE ASSOCIATE Inhaled Oxygen Concentration - - Weight 67.7 kg (149 lb 3.2 oz) 03/05/2024 10:19 AM REAL ESTATE ASSOCIATE Height 170.2 cm (5' 7) 03/05/2024 10:19 AM REAL ESTATE ASSOCIATE Body Mass Index 23.37 03/05/2024 10:19 AM REAL ESTATE ASSOCIATE Plan of Treatment Health Maintenance Due Date [...] BREAST BILATERAL COMPLETE Routine 03/05/2024 10:08 AM REAL ESTATE ASSOCIATE Encounter for screening for malignant neoplasm of breast, unspecified screening modality XR MAMMO DELON BILAT SCREEN Routine 03/05/2024 9:31 AM REAL ESTATE ASSOCIATE Encounter for other screening for malignant neoplasm of breast from Last 3 Months Results * US BREAST BILATERAL COMPLETE (03/05/2024 10:08 AM REAL ESTATE ASSOCIATE) Anatomical Region Laterality Modality BREASTS, Breast Left, Breast Right Bilateral Ultrasound, Other 03/05/2024 2:25 PM REAL ESTATE ASSOCIATE Impressions 03/05/2024 4:53 PM REAL ESTATE ASSOCIATE Negative. RECOMMENDATIONS: Follow-up with annual screening mammography. If continuing the supplemental screening with ultrasound this is best performed at the time of the mammogram. Results and recommendations were discussed with the patient at the time of the exam. BI-RADS Category 1: Negative Dictated by: Mariam Zamora MD @03/05/2024 2:25:24 PM/maribel Narrative 03/05/2024 4:53 PM REAL ESTATE ASSOCIATE For Patients: As a result of the [...] MAMMO DELON BILAT SCREEN (03/05/2024 9:31 AM REAL ESTATE ASSOCIATE) Anatomical Region Laterality Modality BREASTS, Breast Left, Breast Right Bilateral Mammography Impressions 03/05/2024 2:23 PM REAL ESTATE ASSOCIATE There is no radiographic evidence for malignancy. Recommend annual mammograms. MAMMOGRAM ASSESSMENT: ACR 1 Negative PATIENTS: You will also receive a letter with your examination results in an easy to read format. If you have questions about your results, please contact your referring provider. Narrative 03/05/2024 2:23 PM REAL ESTATE ASSOCIATE For Patients: As a result of the Cures Act, medical imaging exams and procedure reports are released immediately into your electronic medical record. You may view this report before your referring provider. If you have questions, please contact your health care provider. XR MAMMO DELON BILAT SCREEN [[id number]] CLINICAL HISTORY: This is an asymptomatic 54 [...] R esult from Last 3 Months Insurance [facility] Care Teams Magazine Feeder Relationship Specialty Start Date End Date Stacey Bailey MD [address] [employer] [place] [id number] PCP - General Family Practice 02/22/23
--- OUTSIDE RECORDS SUMMARY | 2024-04-06 17:58 | XMS_ITS | Encounter Summary ---
Author Organization [facility] Address [address] [place] [address] Care Team Providers Care Cordwood Cutter Helper Name Role Phone Benita Lo APRN, C.N.P. Primary Care [facility] Reason for Visit * Reason Onset Date Comments Appt Request 01/24/2024 Encounter Details Date Type Department Care Team (Latest Contact Info) Description 01/24/2024 Clinical Communication Department of Otorhinolaryngology in [place], [place] [address] [place] [phone] Prescheduling, Provider Appt Request Social History Tobacco Use Types Packs/Day Years Used Date Smoking Tobacco: Never Passive Smoke Exposure: Past Smokeless Tobacco: Never Alcohol Use Standard Drinks/Week Comments Yes 0 (1 standard drink = 0.6 oz pur e alcohol) Once a year [facility] Utilities Answer Date Recorded In the past 12 months has e [employer], gas, oil, or water [employer] threatened to shut off services in your [...] How often do you attend chur or sabianism services? More than 4 times per year 12/26/2021 Do you belong to any clubs o r organizations such as quaker groups, unions, fraternal or athletic groups, or [...] Answer Date Recorded PHQ-2 Score 0 04/03/2022 [facility] Questionnaire Answer Date Recorded [...] your living situation today? I have a [facility] place to live 09/23/2023 Education Answer Date Recorded What is the highest level of school you have completed or the highest degree you have received? 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 [address] [place] [phone] PCP - General 04/13/22 documented as of this encounter
--- OUTSIDE RECORDS SUMMARY | 2024-04-06 17:58 | XMS_ITS | Encounter Summary ---
Author Organization [facility] Address [address] [place] [id number] Care Team Providers Care Client Retention Specialist Name Role Phone Benita Lo APRN, C.N.P. Primary Care [facility] Encounter Details Date Type Department Care Team (Late st Contact Info) Description 03/22/2024 2:30 PM MILLER HEAD WET PROCESS E-Visit [facility] Express [facility] [address] [place] [phone] Jerry Ferguson APRN, C.N.P., M.S.N. [address] [place] [phone] Express Care Online for Sinus Symptoms (sinusitis) Social History Tobacco Use Types Packs/Day Years Used Date Smoking Tobacco: Never Passive Smoke Exposure: Past Smokeless Tobacco: Never Alcohol Use Standard Drinks/Week Comments Yes 0 (1 standard drink = 0.6 oz pur e alcohol) Once a year [facility] Utilities Answer Date Recorded In the past 12 months has [employer], gas, oil, or water [employer] threatened to shut off services in your [...] How often do you attend chur or christianity services? More than 4 times per year 12/26/2021 Do you belong to any clubs o r organizations such as restorationism groups, unions, fraternal or athletic groups, or [...] Answer Date Recorded PHQ-2 Score 0 04/03/2022 [facility] - Occupational Stress [...] living situation today? I have a [facility] place to live 09/23/2023 Education Answer Date Recorded What is the highest level of school you have completed or the highest degree you have received? 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 [address] [place] [phone] PCP - General 04/13/22 documented as of this encounter
--- OUTSIDE RECORDS SUMMARY | 2024-04-06 17:58 | XMS_ITS | Encounter Summary ---
Author Organization [facility] Address [address] [place] [address] Care Team Providers Care Binder Cutter Name Role Phone Benita Lo APRN, C.NStevenPSteven Primary Care [facility] Encounter Details Date Type Department Care Team (Late st Contact Info) Description 01/30/2022 Orders Only [facility]ST [facility] [address] [place] [phone] [facility], Provider, MD Screening Test Laboratory Social History [...] often do you attend chur ch or hinduism services? More than 4 times per year 12/26/2021 Do you belong to any clubs o r organizations such as scientologist groups, unions, fraternal or athletic groups, or [...] Answer Date Recorded PHQ-2 Score 0 03/10/2021 [facility] - Occupational [...] place to sleep or slept in a intermediate (including now)? 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 [address] [place] [phone] PCP - General 04/13/22 documented as of this encounter
== END 2024-04-06 17:59 | disposition left against medical advice (07) ==
LOC: ED 17:56
DX: Z53.21 Procedure and treatment not carried out due to patient leaving prior to being seen by health care provider (principal)